=== PATIENT | female | born 1960 | race Two or more races ===

== ENCOUNTER 2021-03-21 13:17 | Emergency (ER) | payer BC ==
[~2021-03-21] VITALS: Ht 154.9 cm; Wt 79.0 kg
--- NOTE | 2021-03-21 15:54 | PHYS DOC ---
General Adult EDM: Chief Complaint: MECHANICAL FALL HPI: HPI: Patient is a 60 year old female who presents with was standing on the bathtub ledge cleaning the window frame in the bathroom when she slipped and fell hurting her right tib-fib at 12:00 today. She states she took 3 Tylenols. She rates her pain 9 out of 10. She states she can do toe touch pressure only. She does have bruising going down the tib-fib with 2+ swelling. No deformity. Only other history is seasonal allergies and . Review of Systems: Review of Systems: Constitutional: Denies fever or chills. [] Eyes: Denies change in visual acuity. [] HENT: Denies nasal congestion or sore throat. [] Respiratory: Denies cough or shortness of breath. [] Cardiovascular: Denies chest pain or + right tib-fib edema. [] GI: Denies abdominal pain, nausea, vomiting, bloody stools or diarrhea. [] : Denies dysuria. [] Musculoskeletal: Denies back pain or + right tib-fib joint pain. [] Integument: Denies rash. + Right tib-fib bruising [] Neurologic: Denies headache, focal weakness or sensory changes. [] Endocrine: Denies polyuria or polydipsia. [] Lymphatic: Denies swollen glands. [] Psychiatric: Denies depression or anxiety. [] Heart Score: C/O Chest Pain: No Current Medications: Current Medications Medications (Trade) Dose Ordered Sig/[facility] Start Time Stop Time Status Last Admin Dose Admin Tramadol HCl (Ultram) 50 mg 1X ONCE 03/21/21 15:45 03/21/21 15:46 UNV Physical Exam: PE: Constitutional: Well developed, well nourished, no acute distress, non-toxic appearance. [] HENT: Normocephalic, atraumatic, bilateral external ears normal, oropharynx moist, no oral exudates, nose normal. [] Eyes: PERRLA, EOMI, conjunctiva normal, no discharge. [] Neck: Normal range of motion, no tenderness, supple, no stridor. [] Cardiovascular:Heart rate regular rhythm, no murmur [] Lungs & Thorax: Bilateral breath sounds clear to auscultation [] Abdomen: Bowel sounds normal, soft, no tenderness, no masses, no pulsatile mass es. [] Skin: Warm, dry, no erythema, no rash. Bruising down to [place] [] Back: No tenderness, no CVA tenderness. [] Extremities: Right tib-fib tenderness, no cyanosis, no clubbing, ROM intact, 2+ edema. Cannot bear weight, only toe-touch. [] Neurologic: Alert and oriented X 3, normal motor function, normal sensory function, no focal deficits noted. [] Psychologic: Affect normal, judgement normal, mood normal. [] EKG: EKG: [] Radiology/Procedures: Radiology/Procedures: [] Impression: [facility] [address] [place] [address] IMAGING REPORT Signed PATIENT: CECILIO AWAD ACCOUNT: [id number] : 1960 LOCATION: ER AGE: 60 SEX: F EXAM STATUS: REG ER ORD. PHYSICIAN: CHRIS CLEVELAND APRN REASON: pain, bruising after fall PROCEDURE: TIBIA FIBULA RIGHT Exam: Right knee 2 views. Right tibia and fibula 2 views INDICATION: Pain, bruising after fall TECHNIQUE: Frontal and lateral views of the right knee. Frontal and lateral views of the right tibia and fibula Comparisons: None FINDINGS: There is a obliquely oriented fracture to the right tibial plateau extending to the lateral aspect of the proximal tibial metaphysis. Large fracture fragment of the lateral tibial plateau is moderately displaced. Bone mineralization is normal. There is a large suprapatellar effusion. No other fractures are seen. IMPRESSION: Obliquely oriented fracture to the right tibial plateau extending to the lateral aspect of the proximal tibial metaphysis, with moderate displacement of the large fracture fragment. Electronically signed by: Danny Yanez MD (03/21/2021 4:18 PM) [facility] DICTATED and SIGNED BY: DANNY YANEZ MD DATE: 03/21/21 [id number] 0 Course & Med Decision Making: Course & Med Decision Making Pertinent Labs and Imaging studies reviewed. (See chart for details) See HPI. Alert and oriented x4. Speaks in full clear sentences. Denies hitting her head, syncope, neck or back pain. Ambulatory but limping. Toe touch pressure on that right lower extremity only. Pedal pulses are present. Can wiggle her toes and has full range of motion of the ankle but does cause her some pain in the tib-fib. Does have full range of motion at the knee but also causes her some pain in the tib-fib. There is no deformity is seen. No laxity in any joints. Cap refill is less than 2 [address] I spoke to Dr[address] Aviles who states to put the patient in a knee immobilizer and have her call the office in the morning. [] Kaylee Disclaimer: Dragon Disclaimer: This electronic medical record was generated, in whole or in part, using a voice recognition dictation system. Departure Departure Impression: Primary Impression: Tibial plateau fracture, right Qualified Codes: S82.141A - Displaced bicondylar fracture of right tibia, initial encounter for closed fracture Disposition: HOME / SELF CARE / HOMELESS Condition: STABLE Referrals: NO PCP (PCP) LAZARUS AVILES Jr. DO Patient Instructions: Crutch Use, Knee Immobilizer, [id number], Tibial Plateau Fracture with Rehab-SportsMed, Tibial Plateau Fracture, Displaced, Adult Additional Instructions: Call Dr. Aviles's office first thing in the morning and let them know you have a tibial plateau fracture. Keep the knee immobilizer on. Use ice and elevation. Take pain medication as prescribed and with food. Remember pain medication will make you sleepy so do not drive or drink alcohol while taking the medication. Use crutches. Do not put any weight on the extremity. Scripts Crutch (CRUTCH) 1 Each Each PAIR MC UD, #1 DISPENSE: 1 PAIR OF CRUTCHES. PATIENT TO USE INSTRUCTED BY PROVIDER. Prov: CHRIS CLEVELAND APRN 03/21/21 Hydrocodone Bit/Acetaminophen (HYDROCODONE-APAP 5-325 ) 1 Tab Tablet 1 TAB PO PRN Q6HRS PRN for PAIN, #30 TAB 0 Refills Prov: CHRIS CLEVELAND APRN 03/21/21 CHRIS CLEVELAND APRN Mar 21, 2021 15:54
[2021-03-21] MEDS: traMADol 50 MG TABLET PO ONE (15:59)
--- NOTE | 2021-03-21 16:20 | RAD ---
Exam: Right knee 2 views. Right tibia and fibula 2 views INDICATION: Pain, bruising after fall TECHNIQUE: Frontal and lateral views of the right knee. Frontal and lateral views of the right tibia and fibula Comparisons: None FINDINGS: There is a obliquely oriented fracture to the right tibial plateau extending to the lateral aspect of the proximal tibial metaphysis. Large fracture fragment of the lateral tibial plateau is moderately displaced. Bone mineralization is normal. There is a large suprapatellar effusion. No other fractures are seen. IMPRESSION: Obliquely oriented fracture to the right tibial plateau extending to the lateral aspect of the proxim al tibial metaphysis, with moderate displacement of the large fracture fragment. Electronically signed by: Danny Cobian MD (03/21/2021 4:18 PM) [facility]
[2021-03-21] MEDS ORDERED: HYDR-2761 PO (16:44)
[2021-03-21] MEDS ORDERED: CRUT1EAC3 MC (17:00)
[2021-03-21 17:20] VITALS: BP 134/73
== END 2021-03-21 17:26 | disposition home or self-care (01) ==
LOC: ER 13:17
DX: S82.141A Displaced bicondylar fracture of right tibia, initial encounter for closed fracture (principal); W01.0XXA Fall on same level from slipping, tripping and stumbling without subsequent striking against object, initial encounter; Y93.89 Activity, other specified; Y92.89 Other specified places as the place of occurrence of the external cause; Y99.8 Other external cause status
CPT/HCPCS: 29505; 73560; 73590; 99284